=== PATIENT | male | born 1935 | race Caucasian/White ===

== ENCOUNTER 2016-12-24 06:57 | Day surgery (SDC) | payer MEDICARE, OTHER ==
[~2016-12-24] VITALS: Ht 180.3 cm; Wt 64.9 kg
[~2016-12-24 06:57] MED LIST: ALPH-E400 IU PO; BIOTIN1000 MCG PO; CARBIDOPA/LE1 TABLE2 PO; CIPROFLOXACIN500 MG PO; CLARITIN 10MG T10 MG PO; FISH OIL1000 MG PO; LORTAB 5/500 501 TAB PO; METRONIDAZOLE500 MG PO; MULTI VITAMINS1 TA1 PO; NAMENDA XR28 MG PO; PROMETHAZINE HC25 M1 PO; SIMVASTATIN10 MG PO; UROCIT-K15 MEQ PO; VITAMIN D31000 IU PO; WARFARIN2 MG PO; XARELTO20 MG PO; ZITHROMAX Z PA250 MG PO
[2016-12-24 11:38] VITALS: BP 145/81
--- NOTE | 2016-12-24 16:25 | Operative Note ---
Removal of Neoplasm Date of procedure: 12/24/16 Pre-op diagnosis: Malignant Neoplasm scalp 1.8cm Post-op diagnosis: Same Surgeon: Evans Phillip Anesthesia type: Lo-Mac Description of procedure: With patient under local Sean anesthetic the scalp was prepped and draped. The lesion on the posterior occipital was marked out and measured 1.8 cm. The perilesional area was infiltrated with a total of 2 mL of 2 percent lidocaine containing epinephrine. The lesion was marked out and the markup was incised and the lesion was excised, and submitted. Bleeding was stopped with bipolar cautery. Flaps were elevated and a tissue rearrangement geometric plastic repair was done with interrupted 2-0 Vicryl and 3-0 nylon sutures. A small amount surgicel snow was placed in the cavity before the incision was closed. A Dermabond dressing was applied. As well as and an occlusive dressing. Blood loss was less than 10 mL and completely stopped. The patient was sent to recovery in good general condition. EBL (ml): 2 Specimens obtained: Same as above Complications: None Additional Information: Ancef 1g and Decadron 12mg given IV preop at 2814
== END 2016-12-24 10:54 | disposition home or self-care (01) ==
LOC: SDC 06:57
PROVIDERS: Otolaryngology
PROC: 0JB00ZZ Excision of Scalp Subcutaneous Tissue and Fascia, Open Approach (ICD-10-PCS; 2016-12-24)
PROC: 0JX00ZB Transfer Scalp Subcutaneous Tissue and Fascia with Skin and Subcutaneous Tissue, Open Approach (ICD-10-PCS; principal; 2016-12-24 08:30)
DX: C44.42 Squamous cell carcinoma of skin of scalp and neck (principal)